=== PATIENT | male | born 1990 ===

== ENCOUNTER 2016-11-30 22:27 | Emergency (ER) | payer OTHER ==
[2016-11-30] MEDS ORDERED: Ondansetron INJ* 2 MG/ML VIAL IV ONE (23:22)
[2016-11-30] MEDS ORDERED: Pantoprazole IV* 40 MG IV ONE (23:22)
[2016-11-30] MEDS ORDERED: Ketorolac INJ* 30 MG/ML 1 ML VIAL IV ONE (23:22)
[2016-11-30] MEDS ORDERED: NS 0.9% 1000 ML* 2,000 ML IV ONE (23:23)
[2016-11-30] MEDS ORDERED: methylPREDNISolone 125 MG* 2 ML VIAL IV ONE (23:26)
[2016-11-30] MEDS ORDERED: Famotidine IV* 10 MG/ML 2 ML (20 mg) IV ONE (23:26)
[2016-11-30] MEDS ORDERED: NS 0.9% 1000 ML* 1,000 ML IV SCH ×2 (23:30)
[2016-12-01] MEDS ORDERED: predniSONE TAB* 20 MG PO ONE (03:27)
[2016-12-01] MEDS ORDERED: Famotidine TAB* 20 MG PO ONE (03:29)
[2016-12-01 03:40] VITALS: BP 112/65
--- NOTE | 2016-12-01 08:00 | ED ---
Ayden Laura Rebecca, scribed for Isrrael Perea MD on 11/30/16 at 2314 . Allergic Reaction/Systemic - HPI Summary HPI Summary: Pt is a 26 y/o M BIBA who comes to ED p/w allergic reaction c/o difficulty breathing, throat tightening and tongue swelling. Pt reports he had eaten dinner and 1 hour later, at 2200, sx began and have been constant since onset. Administered IV Benadryl and Epi by EMS en route which alleviated sx. Reports prior similar episodes of sx with an unknown cause. - History of Current Complaint Chief Complaint: EDAllergicReaction Hx Obtained From: Patient Onset/Duration: Still Present Timing: Constant Severity Currently: Moderate Pain Intensity: 6 Pain Scale Used: 0-10 Numeric Aggravating Factor(s): Nothing Alleviating Factor(s): Other - EMS Tx Associated Signs And Symptoms: Positive: Difficulty Breathing, Throat Tightening , Other: - Tongue swelling - Allergies/Home Medications Allergies/Adverse Reactions: Allergies Allergy/AdvReac Type Severity Reaction Status Date / Time No Known Allergies Allergy Verified 11/30/16 22:36 PMH/Surg Hx/FS Hx/Imm Hx Previously Healthy: Yes Endocrine/Hematology History: Denies: Hx Diabetes Cardiovascular History: Denies: Hx Coronary Artery Disease Infectious Disease History: No Infectious Disease History: Denies: Traveled Outside the [place] in Last 30 Days - Family History Known Family History: Negative: Cardiac Disease, Hypertension, Diabetes - Social History Alcohol Use: None Substance Use Type: Reports: None Smoking Status (MU): Never Smoked Tobacco Review of Systems Positive: Other - Throat tightening, tongue swelling Positive: Other - Difficulty breathing All Other Systems Reviewed And Are Negative: Yes Physical Exam - Summary Physical Exam Summary: General: well-appearing, no pain distress Skin: warm, color reflects adequate perfusion, dry Head: normal Eyes: EOMI, JERZY ENT: clear rhinorrhea, a little bit of swelling on the tongue and lower lip, posterior pharynx is open, no stridor Neck: supple, nontender Respiratory: CTA, breath sounds present Cardiovascular: RRR Musculoskeletal: normal, strength/ROM intact Neurological: normal, sensory/motor intact, A&O x3 Psychological: affect/mood appropriate Triage Information Reviewed: Yes Vital Signs On Initial Exam: Initial Vitals Temp Pulse Resp BP Pulse Ox 98.6 F 89 21 115/75 95 07/08/17 22:28 11/30/16 22:28 11/30/16 22:28 11/30/16 22:28 11/30/16 22:28 Vital Signs Reviewed: Yes - Ruperto Coma Scale Coma Scale Total: 15 Diagnostics - Vital Signs Vital Signs Temp Pulse Resp BP Pulse Ox 11/30/16 22:30 97 F 85 26 113/72 95 11/30/16 22:28 98.6 F 89 21 115/75 95 - Laboratory Lab Statement: Any lab studies that have been ordered have been reviewed, and results considered in the medical decision making process. Re-Evaluation - Re-Evaluation First Eval Re-Evaluation Time: 03:27 Change: Improved Allergic Reaction Course/Dx - Course Course Of Treatment: NO CRITICAL CARE TIME. IMPROVED IN ED. DISCHARGE HOME STABLE. Assessment/Plan: Pt is a 26 y/o M BIBA who comes to ED p/w allergic reaction c/ o difficulty breathing, throat tightening and tongue swelling since 2200, 1 hour after eating dinner. Administered IV Benadryl and Epi by EMS en route which alleviated sx. Reports prior similar episodes of sx with an unknown cause. Pt will be D/C to home. - Diagnoses Provider Diagnoses: Allergic reaction Discharge - Discharge Plan Condition: Stable Disposition: HOME Prescriptions: Famotidine TAB* [Pepcid 20 MG TAB*] 20 mg PO BID PRN #8 tab PRN Reason: Allergy Symptoms predniSONE TAB* [Deltasone TAB*] 40 mg PO DAILY PRN #8 tab PRN Reason: Allergy Symptoms Patient Education Materials: General Allergic Reaction (ED) Referrals: [facility] [place]] Non Staff,Doctor [Primary Care Provider] - Additional Instructions: FOLLOW UP WITH YOUR DOCTOR. TAKE BENADRYL 50MG EVERY 6 HOURS NEEDED. TAKE PEPCID 20MG TWICE A DAY NEEDED. TAKE PREDNISONE DIRECTED NEEDED. RETURN TO THE EMERGENCY DEPARTMENT FOR ANY WORSENING OF YOUR CONDITION; DIFFICULTY SWALLOWING OR BREATHING OR QUESTIONS OR CONCERNS. The documentation as recorded by the Ayden gonzáles Rebecca accurately reflects the service I personally performed and the decisions made by me, Isrrael Perea MD.
== END 2016-12-01 04:12 | disposition home or self-care (01) ==
LOC: ED 22:27
DX: T78.1XXA Other adverse food reactions, not elsewhere classified, initial encounter (principal); R06.00 Dyspnea, unspecified; R22.0 Localized swelling, mass and lump, head; X58.XXXA Exposure to other specified factors, initial encounter
CPT/HCPCS: 96374; 96375; 99284; A9270-GY; J2930; J7512